=== PATIENT | female | born 1985 | race Asian ===

== ENCOUNTER 2020-09-25 16:34 | Emergency (ER) | payer OTHER ==
[2020-09-25] MEDS ORDERED: IBUPROFEN 600 MG TAB PO ONE (19:31)
[2020-09-25] MEDS ORDERED: CYCLOBENZAPRINE 10 MG TAB PO ONE (19:31)
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
[2020-09-25 20:40] VITALS: BP 122/77
== END 2020-09-25 21:44 | disposition home or self-care (01) ==
LOC: ED 16:34
DX: S46.811A Strain of other muscles, fascia and tendons at shoulder and upper arm level, right arm, initial encounter (principal); M54.2 Cervicalgia; Z72.89 Other problems related to lifestyle; Z79.899 Other long term (current) drug therapy; V87.7XXA Person injured in collision between other specified motor vehicles (traffic), initial encounter; Y93.89 Activity, other specified; Y92.488 Other paved roadways as the place of occurrence of the external cause; Y99.8 Other external cause status
CPT/HCPCS: 72040; 99283